=== PATIENT | male | born 1980 | race African-American/Black ===

== ENCOUNTER 2018-07-20 17:04 | Emergency (ER) | payer OTHER ==
[~2018-07-20] VITALS: Ht 175.3 cm; Wt 70.0 kg
[2018-07-20] MEDS ORDERED: IBUPROFEN 600MG TABLET PO ONE (20:45)
[2018-07-20 23:26] VITALS: BP 130/63
== END 2018-07-20 23:27 | disposition home or self-care (01) ==
LOC: ER 18:48
DX: R22.0 Localized swelling, mass and lump, head (principal); R51 Headache; F12.10 Cannabis abuse, uncomplicated; Z87.891 Personal history of nicotine dependence; Z98.890 Other specified postprocedural states; Y04.0XXA Assault by unarmed brawl or fight, initial encounter
CPT/HCPCS: 70486; 99284

== ENCOUNTER 2018-11-22 08:31 | Emergency (ER) | payer OTHER ==
[~2018-11-22] VITALS: Ht 167.6 cm; Wt 76.0 kg
[2018-11-22] MEDS ORDERED: IBUPROFEN 600MG TABLET PO ONE (09:15)
[2018-11-22 12:18] VITALS: BP 139/74
== END 2018-11-22 12:19 | disposition home or self-care (01) ==
LOC: ER 08:46
DX: S60.511A Abrasion of right hand, initial encounter (principal); L03.113 Cellulitis of right upper limb; X79.XXXA Intentional self-harm by blunt object, initial encounter; Y93.89 Activity, other specified; Y92.149 Unspecified place in prison as the place of occurrence of the external cause; R03.0 Elevated blood-pressure reading, without diagnosis of hypertension; F17.210 Nicotine dependence, cigarettes, uncomplicated
CPT/HCPCS: 73130; 99283

== ENCOUNTER 2018-11-23 10:33 | Emergency (ER) | payer OTHER | END 2018-11-23 11:42 | disposition left against medical advice (07) | LOC: ER 10:33 | DX: Z53.21 Procedure and treatment not carried out due to patient leaving prior to being seen by health care provider (principal) ==

== ENCOUNTER 2018-11-28 07:18 | Emergency (ER) | payer OTHER ==
[~2018-11-28] VITALS: Ht 180.3 cm; Wt 78.0 kg
[2018-11-28 10:50] VITALS: BP 138/68
== END 2018-11-28 10:51 | disposition home or self-care (01) ==
LOC: ER 07:18
DX: J06.9 Acute upper respiratory infection, unspecified (principal); J40 Bronchitis, not specified as acute or chronic; F12.10 Cannabis abuse, uncomplicated; F17.200 Nicotine dependence, unspecified, uncomplicated; Z98.890 Other specified postprocedural states
CPT/HCPCS: 99283; 99406

== ENCOUNTER 2019-03-14 10:32 | Emergency (ER) | payer OTHER ==
[~2019-03-14] VITALS: Ht 172.7 cm; Wt 69.0 kg
[2019-03-14 12:04] VITALS: BP 127/82
== END 2019-03-14 12:05 | disposition home or self-care (01) ==
LOC: ER 12:04
DX: M79.645 Pain in left finger(s) (principal)
CPT/HCPCS: 73120; 99283

== ENCOUNTER 2019-03-19 06:49 | Emergency (ER) | payer OTHER ==
[~2019-03-19] VITALS: Ht 175.3 cm; Wt 71.0 kg
[2019-03-19 07:09] VITALS: BP 121/68
== END 2019-03-19 07:51 | disposition home or self-care (01) ==
LOC: ER 06:49
DX: H61.112 Acquired deformity of pinna, left ear (principal); I10 Essential (primary) hypertension; F17.210 Nicotine dependence, cigarettes, uncomplicated; F12.90 Cannabis use, unspecified, uncomplicated
CPT/HCPCS: 99281

== ENCOUNTER 2019-09-14 02:11 | Emergency (ER) | payer OTHER ==
[~2019-09-14] VITALS: Ht 172.7 cm; Wt 76.0 kg
[2019-09-14] MEDS ORDERED: ACETAMINOPHEN 500MG TABLET PO ONE (04:15)
[2019-09-14 04:39] VITALS: BP 121/64
== END 2019-09-14 04:48 | disposition home or self-care (01) ==
LOC: ER 02:11
DX: R51 Headache (principal); F12.10 Cannabis abuse, uncomplicated
CPT/HCPCS: 99283

== ENCOUNTER 2019-10-22 11:01 | Emergency (ER) | payer OTHER ==
[~2019-10-22] VITALS: Ht 177.8 cm; Wt 91.0 kg
[2019-10-22 11:22] VITALS: BP 140/64
[2019-10-22] MEDS ORDERED: TETANUS, DIPHTHERIA, PERTUSSIS VAC/PF 0.5ML (>7YR OLD) IM ONE (13:45)
[2019-10-22] MEDS ORDERED: BACITRACIN/POLYMYXIN B SULFATE OINT 15GM TOP ONE (13:45)
== END 2019-10-22 14:35 | disposition home or self-care (01) ==
LOC: ER 11:09
DX: S00.81XA Abrasion of other part of head, initial encounter (principal); F17.200 Nicotine dependence, unspecified, uncomplicated; F12.10 Cannabis abuse, uncomplicated; X58.XXXA Exposure to other specified factors, initial encounter; Y93.89 Activity, other specified; Y92.89 Other specified places as the place of occurrence of the external cause; Y99.8 Other external cause status
CPT/HCPCS: 90471; 90715; 99283

== ENCOUNTER 2019-12-14 02:38 | Emergency (ER) | payer OTHER ==
[~2019-12-14] VITALS: Ht 167.6 cm; Wt 63.0 kg
[2019-12-14 04:18] VITALS: BP 123/67
== END 2019-12-14 03:36 | disposition left against medical advice (07) ==
LOC: ER 02:38
DX: R07.89 Other chest pain (principal); Z53.21 Procedure and treatment not carried out due to patient leaving prior to being seen by health care provider
CPT/HCPCS: 93005

== ENCOUNTER 2020-01-02 02:15 | Emergency (ER) | payer OTHER ==
[~2020-01-02] VITALS: Ht 170.2 cm; Wt 59.0 kg
[2020-01-02] MEDS ORDERED: IBUPROFEN 600MG TABLET PO ONE (03:15)
[2020-01-02 04:25] VITALS: BP 125/75
== END 2020-01-02 04:26 | disposition home or self-care (01) ==
LOC: ER 02:15
DX: M25.561 Pain in right knee (principal); Z91.81 History of falling; F12.90 Cannabis use, unspecified, uncomplicated
CPT/HCPCS: 73562; 99283